=== PATIENT | female | born 1950 | race Caucasian/White ===

== ENCOUNTER → 2023-06-16 07:34 | Outpatient (REF) | payer MEDICARE, OTHER, SELFPAY | LOC: EMG 07:34 | PROVIDERS: ATTENDING PHYSICIAN Specialist; FAMILY PHYSICIAN Internal Medicine Cardiovascular Disease | DX: M54.12 Radiculopathy, cervical region (principal); R20.0 Anesthesia of skin | CPT/HCPCS: 95886; 95912 ==

== ENCOUNTER → 2023-06-20 13:15 | Outpatient (REF) | payer MEDICARE, OTHER, SELFPAY | LOC: RAD 13:15 | PROVIDERS: ATTENDING PHYSICIAN Physician Assistant Medical; FAMILY PHYSICIAN Family Medicine | DX: S99.922A Unspecified injury of left foot, initial encounter (principal) | CPT/HCPCS: 73660 ==

== ENCOUNTER → 2023-09-23 13:11 | Outpatient (REF) | payer MEDICARE, OTHER, SELFPAY | LOC: HWRAD 13:11 | PROVIDERS: ATTENDING PHYSICIAN Physician Assistant Medical | DX: M94.0 Chondrocostal junction syndrome [Tietze] (principal) | CPT/HCPCS: 71046 ==

== ENCOUNTER → 2023-11-03 10:16 | Outpatient (REF) | payer MEDICARE, OTHER, SELFPAY | LOC: HWRAD 10:16 | PROVIDERS: ATTENDING PHYSICIAN Physician Assistant Medical; FAMILY PHYSICIAN Family Medicine | DX: R10.11 Right upper quadrant pain (principal) | CPT/HCPCS: 76700 ==

== ENCOUNTER 2024-05-17 17:48 | Emergency (ER) | payer MEDICARE, OTHER, SELFPAY ==
[2024-05-17 17:59] VITALS: BP 169/89
[2024-05-17 18:39] LABS: % Basophils 0.8 % (0-2); % Eosinophils 3.6 % (0-6); % Immature Granulocytes 0.4 % (0-0.5); % Lymphocytes 32.4 % (20.5-51.1); % Monocytes 8.5 % (1.7-9.3); % Neutrophils 54.3 % (42.2-75.2); Absolute Eosinophils 0.2 10^3/uL (0-0.7); Absolute Lymphocytes 1.5 10^3/uL (1.2-3.4); Absolute Monocytes 0.4 10^3/uL (0.1-0.6); Absolute Neutrophils 2.6 10^3/uL (1.4-6.5); Hematocrit 42.1 % (37.0-47.0); Hemoglobin 14.1 g/dL (12.0-16.0); Mean Corp Hgb Conc. 33.5 g/dL (33.0-37.0); Mean Corpuscular Volume 83.7 fL (81.0-99.0); Mean Platelet Volume 10.3 fL (7.4-10.4); Nucleated Red Blood Cells % 0 %; Platelet Count 208 10^3/uL (130-400); Red Blood Cell Count 5.03 10^6/uL (4.20-5.40); Red Cell Dist. Width 17.5 % (11.5-14.5); White Blood Cell Count 4.7 10^3/uL (4.8-10.8)
[2024-05-17 18:55] LABS: ALT (SGPT) 24 U/L (0-35); AST (SGOT) 28 U/L (14-36); Albumin 4.2 g/dl (3.5-5.0); Alkaline Phosphatase 111 U/L (38-126); Blood Urea Nitrogen 18 mg/dl (7-17); Calcium 9.5 mg/dl (8.4-10.2); Carbon Dioxide 28 mmol/L (22-30); Chloride 101 mmol/L (98-107); Glucose 102 mg/dl (70-99); Sodium 134 mmol/L (135-145); Total Bilirubin 0.4 mg/dl (0.2-1.3); Total Protein 6.8 g/dl (6.3-8.2); eGFR > 60.00
[2024-05-17 19:04] LABS: Troponin I < 0.012 ng/ml
--- NOTE | 2024-05-17 21:45 | ED.GENMED ---
History of Present Illness
General
Chief Complaint: Heart Rate Problem
Source: patient
Exam Limitations: none
Time Seen by Provider: 05/17/24 21:16
History of Present Illness
History of Present Illness:
Since this afternoon patient has had episodes of heart racing pounding and occasional skipped beat. Some mild shortness of breath with this. No chest pain no syncope. Recently had a port site surgically manipulated for scar tissue.
Past History
Past History
ED Past Medical History: Cancer (Breast metastatic) and HTN
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
Social History
Tobacco: Former smoker
Alcohol: None
Drug: None
Personal:
Living: with family
Employment: Retired
Family History
Family History: Other
Review of Systems
Review of Systems
All Other Systems: Not applicable
Constitutional: Denies fever or chills
Cardiac: Denies syncope
ABD/GI: Reports no symptoms
Phy Exam
Physical Exam
Physical Exam:
GENERAL: Alert and oriented in no apparent distress
EYE: Orbits normal.
NECK: Supple, no thyroid palpable.
ENT: Pharynx without erythema
CARDIAC: Regular rate and rhythm without any obvious murmurs. Occasional irregular beat. Well-healing incision right upper chest wall
LUNGS: Clear breath sounds,normal
ABDOMEN: Soft, without focal tenderness or distention
NEUROLOGICAL: Alert and oriented , grossly non-focal
SKIN: Warm and dry, no rash or lesion, no discoloration, skin intact.
MUSCULOSKELETAL: No edema,no deformity.Good color
PSYCH: Normal and appropriate interaction.
Course
Orders/Labs/Results
Orders:
Orders
05/17/24 17:49
EKG [Electrocardiogram (*1)] Urgent
Reason for Study: Palpitations
EKG- Treatment ONCE
05/17/24 18:15
Complete Blood Count/With Diff Urgent
Comprehensive Metabolic Panel Urgent
Troponin I Urgent
05/17/24 21:26
CT Chest PE Study Urgent
Comment:
Reason For Exam: Palpitations/shortness of breath
Cardiac Monitoring- Treatment ONCE
IV Insert/Care/Rem.- Treatment PRN
Abnormal Lab Results
05/17/24
18:15
WBC 4.7 L 10^3/uL
(4.8-10.8)
RDW 17.5 H %
(11.5-14.5)
Sodium 134 L mmol/L
(135-145)
BUN 18 H mg/dl
(7-17)
Glucose 102 H mg/dl
(70-99)
05/17/24 18:15
05/17/24 18:15
Vital Signs
Initial and Last Documented VS:
Initial Vital Signs
Temp Pulse Resp BP Pulse Ox
98.5 F 71 18 169/89 98
05/17/24 17:59 05/17/24 17:59 05/17/24 17:59 05/17/24 17:59 05/17/24 17:59
Last Documented Vital Signs
Temp Pulse Resp BP Pulse Ox
98.5 F 65 15 150/79 98
05/17/24 17:59 05/17/24 23:02 05/17/24 23:02 05/17/24 22:00 05/17/24 22:45
MDM/Problems Addressed
Differential Diagnosis Includes:
During patient's symptoms she was noted to have a normal heart rate with occasional premature beat clinically. Benign exam. Doubt serious etiology but with some shortness of breath and history of CA we will get a chest CT to rule out pulmonary
emboli. shelter monitor.
*Radiology
Radiology exam reviewed: radiology read reviewed (No acute findings)
*Pulse Oximetry
Patient hypoxic: no
*EKG
Interpreted by ED Provider?: Yes
Interpretation: abnormal
Comparison EKG: no changes
Heart Rate: 67
Rate: normal
Rhythm: sinus and PVC's
[place]: normal axis
Interval: normal interval
QRS Pattern: normal QRS
Ischemia: non-specific ST changes
*[place] Interpretation
Rate: normal
Interpretation: normal
Heart Rate: 70
Rhythm: sinus and PVC's
*Critical Care Note
Total Time (30-74mins, 75-104mins- exclusive of procedures): Not Applicable
Data Reviewed
Review of Other/Old Records Reveals: Labs, Records and Testing
Update Note
Update Note:
No serious explanation for patient's potation's and heart racing here. Has remained in normal sinus rhythm. Occasional PVCs. Clinically stable. Discharged to follow-up
ED Attending Note
-
Portions of this chart may have been created with voice recognition software.� Occasional wrong word or��sound alike� substitutions may have occurred due to the inherent limitations of voice recognition software.
Discharge Plan
Departure
Patient Disposition: Home (Routine Discharge)
Date of Disposition: 05/17/24
Time of Disposition: 23:10
Patient with high blood pressure during this ER visit?: Yes
Discharge Problem:
Palpitations
Instructions: Palpitations (DC), BLOOD PRESSURE
Prescriptions:
No Action
amlodipine 5 MG tablet
7.5 mg PO DAILY
pantoprazole 40 MG tablet,delayed release (DR/EC)
40 mg PO DAILY
gabapentin 300 MG capsule
300 mg PO Daily
lorazepam 1 MG tablet
1.5 mg PO HS
fluticasone propionate 1 SPRAY spray,suspension
2 spray intranasal DAILY
[id number]-ast [krill oil] 1 EACH capsule
1 ea PO Daily
biotin 1,000 MCG tablet,chewable
1,000 mcg PO Daily
Referrals:
Fabian Mosley MD [Family Provider] - Follow up in 2-3 days
Interventions
Interventions:
*Risk Screen - Suicide Last Done: 05/17/24 23:21
*General Assessment Last Done: 05/17/24 22:24
*Neglect/Abuse Screening Last Done: 05/17/24 23:21
ED- Fall Risk Assessment Last Done: 05/17/24 23:21
*ED COVID-19 Vaccine History Last Done: 05/17/24 23:21
*Nursing Disposition Last Done: 05/17/24 23:21
ED- Cardiac Assessment Last Done: 05/17/24 22:23
ED- Pulmonary Assessment Last Done: 05/17/24 22:23
Discharge Date and Time
Discharge Date/Time: 05/17/24 23:21
Print Language: INDONESIAN
[2024-05-17 21:46] VITALS: BMI 22.2
[2024-05-17 21:49] VITALS: BP 155/85
[2024-05-17 22:00] VITALS: BP 150/79
== END 2024-05-17 23:21 | disposition home or self-care (01) ==
LOC: EMR 17:48
PROVIDERS: Emergency Medicine; EMERGENCY PHYSICIAN Emergency Medicine; FAMILY PHYSICIAN Family Medicine; REFERRING PHYSICIAN Internal Medicine Cardiovascular Disease
DX: R00.2 Palpitations (principal); I10 Essential (primary) hypertension; Z87.891 Personal history of nicotine dependence
CPT/HCPCS: 99285; 71275; 80053; 84484; 85025; 93005; Q9967

== ENCOUNTER → 2024-07-14 10:29 | Outpatient (REF) | payer MEDICARE, OTHER, SELFPAY | LOC: HWRAD 10:29 | PROVIDERS: ATTENDING PHYSICIAN Internal Medicine; FAMILY PHYSICIAN Family Medicine | DX: M25.50 Pain in unspecified joint (principal); Z78.0 Asymptomatic menopausal state | CPT/HCPCS: 77080 ==

== ENCOUNTER 2025-01-28 16:08 | Emergency (ER) | payer MEDICARE, OTHER, SELFPAY ==
[2025-01-28 16:15] VITALS: BP 166/97
--- NOTE | 2025-01-28 18:24 | ED.GENMED ---
History of Present Illness
General
Chief Complaint: Skin Surface Trauma
Source: patient
Exam Limitations: none
Time Seen by Provider: 01/28/25 17:45
Nursing documentation reviewed up to this point in time: agreed with
History of Present Illness
History of Present Illness:
Patient is a 74-year female who presents to the ER complaining of right middle finger laceration. She was reaching into plastic and lacerated her middle finger on a piece of plastic. She is right-hand dominant. She denies any other injuries.
Past History
Past History
ED Past Medical History: Cancer (Breast metastatic) and HTN
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
Social History
Tobacco: Former smoker
Alcohol: None
Drug: None
Personal:
Living: with family
Employment: Retired
Family History
Family History: Other
Phy Exam
General Physical Exam
General Presentation: no apparent distress
General age: appears stated age
General Skin: warm and dry
General Habitus: normal
General Mental: alert
General Hydration: appears well hydrated
Neurological Exam
Neurological Exam: alert and oriented x3
Musculoskeletal Exam
Musculoskeletal Exam: other (rue with strong pulses + partial thickness 1 cm laceration to distal phalynx of right middle finger full flexion/extension of finger no bony tenderness no swelling )
Skin Exam
Skin Exam: normal color and warm/dry
Psychiatric Exam
Psychiatric Exam: normal mood/affect
Course
Orders/Labs/Results
Orders:
Orders
01/28/25 18:22
Tetanus/Diphth/Acelpertussis [Adacel] 0.5 ml IM .ONCE ONE
Vital Signs
Initial and Last Documented VS:
Initial Vital Signs
Temp Pulse Resp BP Pulse Ox
98.3 F 76 16 166/97 98
01/28/25 16:15 01/28/25 16:15 01/28/25 16:15 01/28/25 16:15 01/28/25 16:15
Last Documented Vital Signs
Temp Pulse Resp BP Pulse Ox
98.3 F 76 16 166/97 98
01/28/25 16:15 01/28/25 16:15 01/28/25 16:15 01/28/25 16:15 01/28/25 18:24
Procedures
Laceration Closure
Right Third Finger:
Status of Wound: clean
Size of Wound in cm: 1
Description of Wound Edges: sharp
Preparation: cleaned with saline
Wound exploration: explored to base- no FB
Type of Closure: other (steri strip)
MDM/Problems Addressed
Differential Diagnosis Includes:
Not limited to laceration
MDM/Problems Addressed:
Simple laceration to right middle finger repaired as documented with Steri-Strips wound care reviewed tetanus updated
*Pulse Oximetry
SaO2: 98
Oxygen Mode of Delivery: Room air
Patient hypoxic: no
*Critical Care Note
Total Time (30-74mins, 75-104mins- exclusive of procedures): Not Applicable
ED Attending Note
-
Portions of this chart may have been created with voice recognition software.� Occasional wrong word or��sound alike� substitutions may have occurred due to the inherent limitations of voice recognition software.
Discharge Plan
Departure
Patient Disposition: Home (Routine Discharge)
Date of Disposition: 01/28/25
Time of Disposition: 18:25
Patient with high blood pressure during this ER visit?: Yes
Condition: Fair
Covid-19: Not Applicable
Discharge Problem:
Finger laceration
Instructions: Wound Care (DC), BLOOD PRESSURE, Laceration, Finger Tip Laceration with Steristrips
Prescriptions:
No Action
amlodipine 5 MG tablet
7.5 mg PO DAILY
pantoprazole 40 MG tablet,delayed release (DR/EC)
40 mg PO DAILY
gabapentin 300 MG capsule
300 mg PO Daily
lorazepam 1 MG tablet
1.5 mg PO HS
fluticasone propionate 1 SPRAY spray,suspension
2 spray intranasal DAILY
[id number]-ast [krill oil] 1 EACH capsule
1 ea PO Daily
biotin 1,000 MCG tablet,chewable
1,000 mcg PO Daily
Referrals:
Fabian Mosley MD [Family Provider, Family Practice]
Activity Restrictions/Additional Instructions:
Keep clean and dry for 24 hours after 24 hours you may lightly wet wound. Trim Steri-Strips as needed. Steri-Strips will fall off on their own. Return if any signs of infection of increased pain swelling redness drainage fever chills.
Follow-up with family doctor as needed in the next several days. You were updated on tetanus vaccine.
Interventions
Interventions:
*Risk Screen - Suicide Last Done: 01/28/25 16:15
*General Assessment Last Done: 01/28/25 18:13
*Neglect/Abuse Screening Last Done: 01/28/25 16:15
*ED- Fall Risk Assessment Last Done: 01/28/25 18:13
ED-Skin Assessment Last Done: 01/28/25 18:13
Discharge Date and Time
Print Language: SLOVENIAN
[2025-01-28] MEDS: ADACEL 0.5 ML IM (18:34)
== END 2025-01-28 18:42 | disposition home or self-care (01) ==
LOC: EMR 16:08
PROVIDERS: EMERGENCY PHYSICIAN Emergency Medicine; FAMILY PHYSICIAN Family Medicine
DX: S61.212A Laceration without foreign body of right middle finger without damage to nail, initial encounter (principal); W45.8XXA Other foreign body or object entering through skin, initial encounter; Z23 Encounter for immunization; I10 Essential (primary) hypertension; Z85.3 Personal history of malignant neoplasm of breast; Z87.891 Personal history of nicotine dependence; Z90.710 Acquired absence of both cervix and uterus
CPT/HCPCS: 99282; 12001; 90471; 90715

== ENCOUNTER → 2025-01-29 09:18 | Outpatient (REF) | payer MEDICARE, OTHER, SELFPAY | LOC: MRI 09:18 | PROVIDERS: ATTENDING PHYSICIAN Registered Nurse Oncology; FAMILY PHYSICIAN Family Medicine | DX: R07.82 Intercostal pain (principal) | CPT/HCPCS: 71552; A9575 ==